=== PATIENT | female | born 2000 | race Caucasian/White ===

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

== ENCOUNTER 2020-05-13 23:43 | Emergency (ER) | payer OTHER ==
[2020-05-13 23:48] VITALS: BP 147/91; PULSE 87; RESP 16; TEMP 98.3
--- NOTE | 2020-05-14 00:06 | XR ---
EXAMINATION TYPE: XR shoulder complete RT DATE OF EXAM: 05/13/2020 COMPARISON: NONE HISTORY: Shoulder pain TECHNIQUE: 3 views FINDINGS: I see no fracture nor dislocation. Joint spaces are normal. There is no pathologic calcific ation. Soft tissues appear normal. IMPRESSION: Negative right shoulder exam.
[2020-05-14] MEDS ORDERED: ACET/COD 300 MG/30 MG STARTER PACK 6 TAB BTL PO STA (00:44)
--- NOTE | 2020-05-14 00:44 | ED ---
Upper Extremity HPI - General Chief Complaint: Extremity Injury, Upper Stated Complaint: Rt shoulder injury Time Seen by Provider: 05/14/20 00:32 Source: patient, RN notes reviewed Mode of arrival: ambulatory Limitations: no limitations - History of Present Illness Initial Comments: Patient is 19-year-old female that presents emergency department complaining of right shoulder pain. She notes that she was worse or other boyfriend doing an airplane game when he dropped her and she fell on her right shoulder. She noted that her right shoulder is painful and she had a bowel movement due to the pain. She states the pain is about a 6-7 out of 10 that is constant. She was in no apparent distress or pain while sitting up in bed during exam and interview. She denied any chest pain shortness of breath headache nausea vomiting diarrhea constipation fever fatigue chills - Related Data Allergies Allergy/AdvReac Type Severity Reaction Status Date / Time No Known Allergies Allergy Verified 05/13/20 23:45 Review of Systems ROS Statement: Those systems with pertinent positive or pertinent negative responses have been documented in the HPI. ROS Other: All systems not noted in ROS Statement are negative. Past Medical History Past Medical History: No Reported History History of Any Multi-Drug Resistant Organisms: None Reported Past Surgical History: No Surgical Hx Reported Past Psychological History: No Psychological Hx Reported Smoking Status: Never smoker Past Alcohol Use History: Occasional Past Drug Use History: None Reported General Exam Limitations: no limitations General appearance: alert, in no apparent distress Head exam: Present: atraumatic, normocephalic, normal inspection Eye exam: Present: normal appearance, PERRL, EOMI. Absent: scleral icterus, conjunctival injection, periorbital swelling ENT exam: Present: normal exam, mucous membranes moist Neck exam: Present: normal inspection. Absent: tenderness, meningismus, lymphadenopathy Respiratory exam: Present: normal lung sounds bilaterally. Absent: respiratory distress, wheezes, rales, rhonchi, stridor Cardiovascular Exam: Present: regular rate, normal rhythm, normal heart sounds. Absent: systolic murmur, diastolic murmur, rubs, gallop, clicks GI/Abdominal exam: Present: soft, normal bowel sounds. Absent: distended, tenderness, guarding, rebound, rigid Extremities exam: Present: normal inspection, normal capillary refill. Absent: full ROM (Decreased right shoulder range of motion due to pain.), tenderness, pedal edema, joint swelling, calf tenderness Neurological exam: Present: alert, oriented X3, CN II-XII intact Psychiatric exam: Present: normal affect, normal mood Skin exam: Present: warm, dry, intact, normal color. Absent: rash Course Vital Signs 05/13/20 23:45 Temperature 98.3 F Pulse Rate 87 Respiratory 16 Rate Blood Pressure 147/91 O2 Sat by Pulse 100 Oximetry Medical Decision Making - Medical Decision Making [age] female complaining of right shoulder pain. X-rays were negative for any dislocations or fractures. Unable to obtain a full range of motion of right shoulder due to patient complaining of pain and resisting tests and exams. Case discussed with Dr. Treadwell, discharge patient home with Tylenol 3 starter pack and arm sling for pain control. - Radiology Data Radiology results: report reviewed, image reviewed Shoulder x-ray:Negative right shoulder exam. Disposition Clinical Impression: Right shoulder pain, Right shoulder strain Disposition: HOME SELF-CARE Condition: Stable Instructions (If sedation given, give patient instructions): Shoulder Sprain (ED) Additional Instructions: Please return to the Emergency Department if symptoms worsen or any other concerns. Follow-up with primary care in 2-4 days. Follow-up with orthopedics in 2-4 days. Take Tylenol 3 as prescribed. Wear arm sling as needed for pain control. Do not wear for any longer than 5 days to prevent frozen shoulder. Is patient prescribed a controlled substance at d/c from ED?: Yes When asked, does pt state using other controlled substances?: No If prescribed controlled substance>3 days was MAPS reviewed?: Prescribed <3 Days If opioid is for acute pain is fill amount 7 days or less?: Yes Referrals: Kari Brower MD [Primary Care Provider] - 1-2 days David Westbrook DO [Doctor of Osteopathic Medicine] - 1-2 days Time of Disposition: 00:48
== END 2020-05-14 01:07 | disposition home or self-care (01) ==
LOC: EC 23:43
DX: S46.911A Strain of unspecified muscle, fascia and tendon at shoulder and upper arm level, right arm, initial encounter (principal); W17.89XA Other fall from one level to another, initial encounter; Y93.89 Activity, other specified; Y92.009 Unspecified place in unspecified non-institutional (private) residence as the place of occurrence of the external cause
CPT/HCPCS: 99283

== ENCOUNTER → 2020-05-18 | Outpatient (CLI) | payer OTHER ==
--- NOTE | 2020-05-19 15:08 | MR ---
EXAMINATION TYPE: MR shoulder RT wo con DATE OF EXAM: 05/18/2020 COMPARISON: Radiograph 05/13/2020 HISTORY: 19-year-old female Right shoulder pain, unable to move arm forward. Patient fell and tried catching herself 5-6 days ago. M25.511, S43.51XA TECHNIQUE: Multiplanar, multisequence imaging of the right shoulder is performed without contrast. FINDINGS: While the AC joint remains congruent, there is extensive periarticular soft tissue edema and associat ed effusion. Edema at the anterior deltoid muscle attachment and lateral trapezius attachment. Additi onal thickening and intermediate signal involving the coracoclavicular ligaments without monica disrup tion. Subscapularis, supraspinatus, and infraspinatus tendons are intact. The long head biceps tendon is intact. No discrete labral tear given radiographic technique. No paralabral cyst. The glenohumeral joint is intact. No significant glenohumeral joint effusion. No atrophy of the rotator cuff musculature. Normal red marrow compatible with patient's young age. No Hill-Sachs deformity or os acromiale. IMPRESSION: Type II AC joint injury/sprain per the Rosa classification. Associated edema and soft tissue swel ling. No rotator cuff tear. The glenohumeral joint remains intact.
== END ==
LOC: RADMRIMAIN 12:41
PROVIDERS: ATTEND Orthopaedic Surgery Sports Medicine
DX: S49.91XA Unspecified injury of right shoulder and upper arm, initial encounter (principal); W19.XXXA Unspecified fall, initial encounter